=== PATIENT | female | born 1990 | race Caucasian/White ===

== ENCOUNTER 2017-06-10 14:35 | Emergency (ER) | payer OTHER ==
[~2017-06-10] VITALS: Ht 170.2 cm; Wt 60.0 kg
[~2017-06-10 14:35] MED LIST: DOCU-94 PO; PRENTAB26 PO
[2017-06-10 14:38] VITALS: Ht 170.2 cm; Wt 60.0 kg
[2017-06-10] MEDS ORDERED: SODIUM CHLORIDE 0.9% 500ML 500 ML IV STA (15:00)
[2017-06-10] MEDS ORDERED: KETOROLAC TROMETHAMINE 30 MG/ML VIAL IV STA (15:00)
[2017-06-10] MEDS ORDERED: PROCHLORPERAZINE 5 MG/ML 2 ML VIAL IV STA (15:00)
[2017-06-10] MEDS ORDERED: DiphenhydrAMINE HCL 50 MG/ML VIAL IV STA (15:00)
--- NOTE | 2017-06-10 15:00 | EMERGENCY ROOM VISIT NOTE ---
History Report prepared by Anamaria: Savannah Lindo Under the Supervision of: Dr. Guanakito Wilson M.D. First contact with patient: 14:41 Chief Complaint: ILLNESS Stated Complaint: CHILLS, HOT, SPINE/NECK PAIN History of Present Illness The patient is a 26 year old white female with a past medical history of arthritis and disc degeneration who presents to the ED with a cc of a constant illness beginning this morning. The patient states that she suddenly felt sick this morning. Positive nausea, neck pain, neck heaviness, head heaviness and pain, back pain, sore throat, headache, and chills. Negative vomiting, urinary symptoms, cough, fall, trauma, recent travel, antibiotic use. The patient notes that her kids have been sick over the last few weeks. She describes her back pain as the feeling of "her spine tearing away from her body". Source of History: patient Onset: this morning Position: other (global) Quality: other (illness) Timing: constant Associated Symptoms: + chills, + headache, + sorethroat, + neck pain, + nausea, + back pain, No cough, No vomiting, No urinary symptoms Review of Systems See HPI for pertinent positives and negatives. A total of ten systems were reviewed and were otherwise negative. Past Medical & Surgical Medical Problems: (1) Arthritis (2) Disc degeneration - L5/S1 (3) Laceration of left index finger w/o foreign body w/o damageto nail (4) Mastitis (5) Migraine Family History Heart disease Hypertension Social History Smoking Status: Former Smoker Alcohol Use: none Marital Status: single Housing Status: lives with family Occupation Status: employed, student Current/Historical Medications No Active Prescriptions or Reported Meds Allergies Coded Allergies: BEE STING (Verified Allergy, Intermediate, Redness/Swelling, 07/02/16) Adhesives (Verified Allergy, Unknown, ., 07/02/16) Aloe (Unverified Allergy, Unknown, ., 07/02/16) Hydromorphone (Verified Allergy, Unknown, ., 07/02/16) Vancomycin (Verified Allergy, Unknown, Rash,itchiness and shortness of breath., 07/02/16) Reported by PT. Uncoded Allergies: CRANBERRIES (Allergy, Intermediate, RASH, 05/30/14) LODINATED DIAGNOSTIC AGENTS (Allergy, Unknown, unkn, 9/8/15) per mariella (spelling verified) Physical Exam Vital Signs Date Time Temp Pulse Resp B/P (MAP) Pulse Ox O2 Delivery O2 Flow Rate FiO2 06/10/17 18:09 37.2 97 16 96/59 98 06/10/17 17:03 37.1 102 16 93/50 98 Room Air 06/10/17 16:23 104 06/10/17 15:30 38.3 06/10/17 14:38 37.5 99 18 117/70 95 Room Air Physical Exam GENERAL: Awake, alert, well-appearing, NAD HENT: Normocephalic, atraumatic. No photophobia. Posterior oropharynx is clear, no swelling or erythema, no tonsillar or uvular deviation. EYES: Normal conjunctiva. Sclera non-icteric. NECK: Supple. No nuchal rigidity. FROM. No signs of meningismus, no cervical or anterior adenopathy RESPIRATORY: CTAB, no rhonchi, wheezing, crackles CARDIAC: RRR, no MRG ABDOMEN: Soft, NTND, BS+ MSK: No chest wall TTP, no LE edema NEURO: CN 2-12 intact, 5/5 upper and lower extremity strength, no dysmetria, no drift, good finger to nose, no sensory deficits. SKIN: No rash or jaundice noted. Medical Decision & Procedures ER Provider Diagnostic Interpretation: X-ray: Per my interpretation, radiologist review. CHEST ONE VIEW PORTABLE FINDINGS: Cardiomediastinal and hilar silhouettes are within normal limits. Calcified right hilar lymph node redemonstrated. No pneumothorax, pleural effusion, focal airspace consolidation or overt pulmonary edema. The bones of the chest appear grossly intact. IMPRESSION: No acute cardiopulmonary process. The above report was generated using voice recognition software. It may contain grammatical, syntax or spelling errors. Electronically signed by: Damon Lemons M.D. 06/10/2017 3:25 PM Dictated Date/Time: 06/10/2017 3:25 PM Laboratory Results 06/10/17 15:30 Red Blood Count 4.23, Mean Corpuscular Volume 90.5, Mean Corpuscular Hemoglobin 31.2, Mean Corpuscular Hemoglobin Concent 34.5, Mean Platelet Volume 9.7, Neutrophils (%) (Auto) 89.9, Lymphocytes (%) (Auto) 3.4, Monocytes (%) (Auto) 6.0, Eosinophils (%) (Auto) 0.3, Basophils (%) (Auto) 0.2, Neutrophils # (Auto) 10.41, Lymphocytes # (Auto) 0.39, Monocytes # (Auto) 0.69, Eosinophils # (Auto) 0.04, Basophils # (Auto) 0.02 06/10/17 15:30 Test 06/10/17 15:30 06/10/17 15:35 06/10/17 17:00 White Blood Count 11.57 K/uL (4.8-10.8) Red Blood Count 4.23 M/uL (4.2-5.4) Hemoglobin 13.2 g/dL (12.0-16.0) Hematocrit 38.3 % (37-47) Mean Corpuscular Volume 90.5 fL (80-100) Mean Corpuscular Hemoglobin 31.2 pg (25-34) Mean Corpuscular Hemoglobin Concent 34.5 g/dl (32-36) Platelet Count 281 K/uL (130-400) Mean Platelet Volume 9.7 fL (7.4-10.4) Neutrophils (%) (Auto) 89.9 % Lymphocytes (%) (Auto) 3.4 % Monocytes (%) (Auto) 6.0 % Eosinophils (%) (Auto) 0.3 % Basophils (%) (Auto) 0.2 % Neutrophils # (Auto) 10.41 K/uL (1.4-6.5) Lymphocytes # (Auto) 0.39 K/uL (1.2-3.4) Monocytes # (Auto) 0.69 K/uL (0.11-0.59) Eosinophils # (Auto) 0.04 K/uL (0-0.5) Basophils # (Auto) 0.02 K/uL (0-0.2) RDW Standard Deviation 41.4 fL (36.4-46.3) RDW Coefficient of Variation 12.5 % (11.5-14.5) Immature Granulocyte % (Auto) 0.2 % Immature Granulocyte # (Auto) 0.02 K/uL (0.00-0.02) Anion Gap 9.0 mmol/L (3-11) Est Creatinine Clear Calc Drug Dose 100.2 ml/min Estimated GFR () 116.1 Estimated GFR (Non- 100.2 BUN/Creatinine Ratio 23.2 (10-20) Calcium Level 8.8 mg/dl (8.5-10.1) Total Bilirubin 0.7 mg/dl (0.2-1) Direct Bilirubin 0.2 mg/dl (0-0.2) Aspartate Amino Transf (AST/SGOT) 16 U/L (15-37) Alanine Aminotransferase (ALT/SGPT) 25 U/L (12-78) Alkaline Phosphatase 112 U/L (45-117) Total Protein 7.7 gm/dl (6.4-8.2) Albumin 4.3 gm/dl (3.4-5.0) Lipase 158 U/L (73-393) Influenza Type A Antigen Neg for Influ A (NEG) Influenza Type B Antigen Neg for Influ B (NEG) Urine Color YELLOW Urine Appearance CLEAR (CLEAR) Urine pH 5.0 (4.5-7.5) Urine Specific [place] 1.028 (1.000-1.030) Urine Protein NEG (NEG) Urine Glucose (UA) NEG (NEG) Urine Ketones 1+ (NEG) Urine Occult Blood NEG (NEG) Urine Nitrite NEG (NEG) Urine Bilirubin NEG (NEG) Urine Urobilinogen NEG (NEG) Urine Leukocyte Esterase NEG (NEG) Urine Test NEG (NEG) Laboratory results reviewed by me Medications Administered Medications (Trade) Dose Ordered Sig/Lida Route Start Time Stop Time Status Last Admin Dose Admin Prochlorperazine Edisylate (Compazine Inj) 10 mg NOW STAT IV 06/10/17 15:00 06/10/17 15:03 DC 06/10/17 15:32 10 MG Ketorolac Tromethamine (Toradol Inj) 30 mg NOW STAT IV 06/10/17 15:00 06/10/17 15:03 DC 06/10/17 15:33 30 MG Diphenhydramine HCl (Benadryl Inj) 25 mg NOW STAT IV 06/10/17 15:00 06/10/17 15:03 DC 06/10/17 15:33 25 MG Sodium Chloride 500 ml @ 500 mls/hr Q1H STAT IV 06/10/17 15:00 06/10/17 15:59 DC 06/10/17 15:32 500 MLS/HR Acetaminophen (Tylenol Tab) 1,000 mg NOW STAT PO 06/10/17 15:53 06/10/17 15:54 DC 06/10/17 16:48 1,000 MG ED Course 1441: The patient was evaluated in room C8. A complete history and physical exam was performed. 1747: I reevaluated the patient and she is doing well. 1822: I reevaluated the patient. Discussed results and discharge instructions: She verbalized understanding and agreement. The patient is ready for discharge. Medical Decision Triage Nursing notes reviewed. The patient's presentation and history were concerning for URI, bronchitis, viral syndrome, flu. Patient was seen and evaluated the bedside. Patient is a 26-year-old past medical history of migraines and states this morning she had complaints of some neck headache and some back pain. Patient denies any recent travel. Patient does have 2 young boys who have both been sick with croup and has been receiving some antibiotics. Patient is unsure as to whether not she had a flu shot. Patient has had a cough but it is been nonproductive. Patient otherwise is fairly well-appearing and has a normal neurologic exam. No signs of meningismus or nuchal rigidity. Patient has no photophobia. Patient did have blood work that was completed along with a urinalysis and chest x-ray. A flu was also checked. Patient was given supportive care. Patient's white blood cell count was 11,000. Patient had normal kidney for infection. Patient LFTs and lipase within normal limits. Patient chest x-ray clear. Patient flu negative. Patient was feeling improved. Patient tolerated by mouth without difficulty. Patient did spike a fever here after which point she was given antipyretics. Patient was looking and feeling improved and was told of all the findings. Patient was told liberal fluid hydration. Patient was told that if she cannot tolerate by mouth she should consider returning. Patient was told that if she had no appetite but is able tolerate liquids she should make sure she consumes some sort of caloric liquids. Patient was told to continue [id number] type treatment with medications. Patient was agreeable to this plan of care. Patient again had a normal neurologic exam and no signs of meningismus. Patient was deemed suitable for outpatient follow-up and treatment. Patient was given strict follow-up, discharge, and return precautions. All questions were answered. Patient was deemed suitable for outpatient follow-up at this time. Patient agreed with the plan of care and was safely discharged home. Medication Reconcilliation Current Medication List: was personally reviewed by me Blood Pressure Screening Patient's blood pressure: Normal blood pressure Blood pressure disposition: Did not require urgent referral Impression Primary Impression: Upper respiratory infection Additional Impression: Fever Scribe Attestation The scribe's documentation has been prepared under my direction and personally reviewed by me in its entirety. I confirm that the note above accurately reflects all work, treatment, procedures, and medical decision making performed by me. Departure Information Dispostion Home / Self-Care Prescriptions No Active Prescriptions or Reported Meds Referrals No Doctor, Assigned (PCP) Patient Instructions ED Fever Control, ED Upper Resp Infec No Abx Tx, My [facility] Additional Instructions Please return to the emergency department if you have worsening or recurrent symptoms not amenable to at-home treatment. Please call for a follow-up appointment with her primary care physician. Please take your medications as prescribed. If you have other concerns and/or complaints please feel free to also call your primary care physician's office or return the ED for further evaluation, management, and treatment. You may take 600 mg Ibuprofen every 6 hours as needed for pain with food for no more than 2 consecutive days. You may take tylenol 1000 mg every 6 hours as needed for pain. You may take motrin and tylenol separately or at the same time. You have been examined and treated today on an emergency basis only. This is not a substitute for, or an effort to provide, complete comprehensive medical care. It is impossible to recognize and treat all injuries or illnesses in a single emergency department visit. It is therefore important that you follow up closely with [facility], your PCP, and/or your specialist(s). Call as soon as possible for an appointment. Thank you for your time and consideration. I look forward to speaking with you again soon. Please don't hesitate to call us if you have any questions. Problem Qualifiers Primary Impression: Upper respiratory infection URI type: unspecified viral URI Qualified Codes: J06.9 - Acute upper respiratory infection, unspecified; B97.89 - Other viral agents as the cause of diseases classified elsewhere Additional Impression: Fever Fever type: unspecified Qualified Codes: R50.9 - Fever, unspecified
--- NOTE | 2017-06-10 15:27 | DIAGNOSTIC IMAGING REPORT ---
CHEST ONE VIEW PORTABLE HISTORY: 26 years-old Female ABDOMINAL PAIN/GI acute generalized abdominal pain COMPARISON: Chest radiograph 01/04/2015 TECHNIQUE: Portable upright AP view of the chest FINDINGS: Cardiomediastinal and hilar silhouettes are within normal limits. Calcified right hilar lymph node redemonstrated. No pneumothorax, pleural effusion, focal airspace consolidation or overt pulmonary edema. The bones of the chest appear grossly intact. IMPRESSION: No acute cardiopulmonary process. The above report was generated using voice recognition software. It may contain grammatical, syntax or spelling errors. Electronically signed by: Damon Lemons M.D. 06/10/2017 3:25 PM Dictated Date/Time: 06/10/2017 3:25 PM
[2017-06-10] MEDS ORDERED: ACETAMINOPHEN 500 MG TAB PO STA (15:53)
[2017-06-10] MEDS ORDERED: BENZONATATE 100MG CAP PO ONE (16:00)
[2017-06-10 16:06] LABS: BASO % 0.2 %; BASO ABS # 0.02 K/uL (0-0.2); COMPLETE YES; EOS % 0.3 %; HEMATOCRIT 38.3 % (37-47); IG% 0.2 %; LYMPH % 3.4 %; LYMPH ABS # 0.39 K/uL (1.2-3.4); MEAN CELL VOLUME 90.5 fL (80-100); MEAN CORPUSCULAR HEMOGLOBIN 31.2 pg (25-34); MEAN CORPUSCULAR HGB CONC 34.5 g/dl (32-36); MEAN PLATELET VOLUME 9.7 fL (7.4-10.4); NEUT % 89.9 %; PLATELET COUNT 281 K/uL (130-400); RED BLOOD COUNT 4.23 M/uL (4.2-5.4); WHITE BLOOD COUNT 11.57 K/uL (4.8-10.8)
[2017-06-10 16:25] LABS: BUN/CREATININE RATIO 23.2 (10-20); CALCIUM 8.8 mg/dl (8.5-10.1); CREATININE 0.82 mg/dl (0.60-1.20); POTASSIUM 3.7 mmol/L (3.5-5.1)
[2017-06-10 17:14] LABS: URINE APPEARANCE CLEAR (CLEAR); URINE BILIRUBIN NEG (NEG); URINE COLOR YELLOW; URINE NITRITE NEG (NEG); URINE SPECIFIC GRAVITY 1.028 (1.000-1.030); UROBILINOGEN NEG (NEG); ZZUR CULT IF INDIC CLEAN CATCH NO
[2017-06-10 17:22] LABS: MANUAL MICROSCOPIC REQUIRED? NO; REVIEW REQ? NO
[2017-06-10 18:09] VITALS: BP 96/59; PULSE 97; TEMP 37.2; O2SAT 98
== END 2017-06-10 18:10 | disposition home or self-care (01) ==
LOC: C.EDB 14:36 → C.EDC 18:10
DX: J06.9 Acute upper respiratory infection, unspecified (principal); M19.90 Unspecified osteoarthritis, unspecified site; M51.37 Other intervertebral disc degeneration, lumbosacral region; Z87.828 Personal history of other (healed) physical injury and trauma; Z87.891 Personal history of nicotine dependence; Z88.3 Allergy status to other anti-infective agents; Z88.5 Allergy status to narcotic agent; Z91.030 Bee allergy status; Z91.018 Allergy to other foods